=== PATIENT | female | born 1975 | race Caucasian/White ===

== ENCOUNTER → 2018-02-19 | Outpatient (CLI) | payer OTHER ==
[~2018-02-19] MED LIST: BLOOD BUILDER PO; DOXY100T PO; DOXYCYCLINE PO; [UNRECOGNIZED DRUG - MIXTURE] PO; [UNRECOGNIZED DRUG - OTHER] PO; [UNRECOGNIZED DRUG - OTHER] PO; [UNRECOGNIZED DRUG - OTHER] PO
[2018-02-19 08:51] LABS: BASOPHILS # (AUTO) 0.03 x10^3/uL (0-0.1); BASOPHILS % (AUTO) 1 % (0-1); EOSINOPHILS # (AUTO) 0.16 x10^3/uL (0-0.4); EOSINOPHILS % (AUTO) 4 % (1-7); LYMPHOCYTES # (AUTO) 1.02 x10^3/uL (1-3.4); LYMPHOCYTES % (AUTO) 26 % (22-44); MD NO; MEAN CORPUSCULAR HEMOGLOBIN 25.3 pg (27.0-34.8); MEAN CORPUSCULAR HGB CONC 32.4 g/dL (32.4-35.8); MEAN CORPUSCULAR VOLUME 78.1 fL (80-100); MEAN PLATELET VOLUME 7.6 fL (7.4-10.4); MONOCYTES # (AUTO) 0.42 x10^3/uL (0.2-0.8); MONOCYTES % (AUTO) 11 % (2-9); NEUTROPHILS # (AUTO) 2.37 x10^3/uL (1.8-6.8); NEUTROPHILS % (AUTO) 59 % (42-75); PLATELET COUNT 263 x10^3/uL (130-400); RED BLOOD COUNT 4.19 x10^6/uL (3.82-5.3); RED CELL DISTRIBUTION WIDTH 17.9 % (9.6-15.2)
== END | disposition home or self-care (01) ==
LOC: STAR 08:00
PROVIDERS: ATTEND Obstetrics & Gynecology Gynecology
DX: Z01.818 Encounter for other preprocedural examination (principal); N92.0 Excessive and frequent menstruation with regular cycle; D25.0 Submucous leiomyoma of uterus; D64.9 Anemia, unspecified
CPT/HCPCS: 36415; 84703; 85025

== ENCOUNTER 2018-02-25 15:15 | Day surgery (SDC) | payer OTHER ==
[~2018-02-25] VITALS: Ht 152.4 cm; Wt 68.0 kg
[2018-02-25] MEDS ORDERED: LACTATED RINGERS 1,000 ML IV SCH ×3 (15:31→21:00)
[2018-02-25 16:03] LABS: HCG UR SG 1.026 (1.003-1.030)
[2018-02-25] MEDS ORDERED: FENTANYL PF 100 MCG/2ML ONE ×3 (16:22→19:53)
[2018-02-25] MEDS ORDERED: MIDAZOLAM 1 MG/ML, 2ML ONE (16:22)
[2018-02-25] MEDS ORDERED: BUPIVACAINE/PF-EPI 0.25% 1:200K ONE (17:19)
[2018-02-25] MEDS ORDERED: PROPOFOL 10 MG/ML, 20ML ONE (17:25)
[2018-02-25] MEDS ORDERED: DEXAMETHASONE 4 MG/ML, 1ML ONE (17:25)
[2018-02-25] MEDS ORDERED: SUCCINYLCHOLINE 20 MG/ML, 10ML ONE (17:25)
[2018-02-25] MEDS ORDERED: ONDANSETRON 2MG/ML, 2ML ONE (17:25)
[2018-02-25] MEDS ORDERED: KETOROLAC 30 MG/1 ML IV PRN ×2 (18:30→21:00)
[2018-02-25] MEDS ORDERED: MEPERIDINE/PF 25MG/0.5ML IVPush PRN (18:30)
[2018-02-25] MEDS ORDERED: LABETALOL 5MG/ML, 20ML IV PRN (18:30)
[2018-02-25] MEDS ORDERED: HYDROmorphone 1 MG/ML, 1ML IV PRN (18:30)
[2018-02-25] MEDS ORDERED: hydrALAzine 20 MG/ML, 1ML IV PRN (18:30)
[2018-02-25] MEDS ORDERED: METOCLOPRAMIDE 5 MG/ML, 2ML IV PRN (18:30)
[2018-02-25] MEDS ORDERED: ALBUTEROL SULFATE 2.5 MG/3 ML NPPB PRN (18:30)
[2018-02-25] MEDS ORDERED: ONDANSETRON 2MG/ML, 2ML IVPush PRN (18:30)
[2018-02-25] MEDS ORDERED: OXYcodone 5 MG/5 ML ORAL.SOL UDC PO PRN ×2 (18:30→21:00)
[2018-02-25] MEDS ORDERED: PROMETHAZINE 25 MG/ML, 1ML IV PRN (18:30)
[2018-02-25] MEDS ORDERED: OXYcodone 5 MG/5 ML ORAL.SOL UDC ONE (19:11)
[2018-02-25] MEDS: FENTANYL PF 100 MCG/2ML IV PRN ×3 (19:13→19:54)
[2018-02-25] MEDS ORDERED: KETOROLAC 30 MG/1 ML ONE (19:39)
[2018-02-25] MEDS ORDERED: morphine SULFATE 10 MG/ML, 1ML IV PRN (21:00)
== END 2018-02-25 21:45 | disposition home or self-care (01) ==
LOC: OR 15:15 → 4NOR 20:13 → OR 21:45
PROVIDERS: ATTEND Obstetrics & Gynecology Gynecology
DX: D25.0 Submucous leiomyoma of uterus (principal); N92.0 Excessive and frequent menstruation with regular cycle; D64.9 Anemia, unspecified; Z98.890 Other specified postprocedural states; Z88.8 Allergy status to other drugs, medicaments and biological substances
CPT/HCPCS: 36415; 58561; 80051; 81025; 88305; J0330; J1100; J1885; J2250; J2405; J2704; J3010; G0378